=== PATIENT | female | born 1985 | race Caucasian/White ===

== ENCOUNTER 2019-04-04 16:48 | Emergency (ER) | payer MEDICAID, OTHER ==
[~2019-04-04] VITALS: Ht 162.6 cm; Wt 59.0 kg
[~2019-04-04 16:48] MED LIST: CLIN-96 PO; CYCL-1 PO; NITR100C PO; ONDA8TAB6 PO; ZOF4T PO
[2019-04-04 17:08] VITALS: BP 139/101
[2019-04-05] MEDS ORDERED: HYDR-3686 PO (12:34)
[2019-04-05] MEDS ORDERED: ONDA4TAB12 PO (12:34)
== END 2019-04-04 17:34 | disposition home or self-care (01) ==
LOC: ER 16:49
DX: F15.10 Other stimulant abuse, uncomplicated (principal); F11.10 Opioid abuse, uncomplicated
CPT/HCPCS: 99281